=== PATIENT | female | born 1995 | race Caucasian/White ===

== ENCOUNTER → 2018-09-20 | Outpatient (CLI) | payer BC ==
--- NOTE | 2018-09-20 16:44 | REP ---
Right foot: Four views. History: Contusion right foot. Comparison right foot radiographs are from November 28, 2012. Findings: Four views of the right foot show overall normal mineralization. There is mild soft tissue swelling dorsally over the metatarsals on the lateral radiograph. Impression: Mild soft tissue swelling. Otherwise negative. Electronically Signed by Iggy Salazar MD 09/20/2018 04:35 P
== END ==
LOC: M ADAMS 15:44
PROVIDERS: ATTEND Physician Assistant Medical
DX: S90.31XA Contusion of right foot, initial encounter (principal); X58.XXXA Exposure to other specified factors, initial encounter; Y92.9 Unspecified place or not applicable; M79.89 Other specified soft tissue disorders